=== PATIENT | female | born 2000 | race African-American/Black ===

== ENCOUNTER 2025-02-13 07:43 | Emergency (ER) | payer MEDICAID ==
[~2025-02-13] VITALS: Ht 170.2 cm; Wt 85.9 kg
[~2025-02-13 07:43] MED LIST: NITR-87 PO
[2025-02-13 08:03] VITALS: BP 135/87; PULSE 99; RESP 17; TEMP 99; O2SAT 100
[2025-02-13] MEDS: ACETAMINOPHEN 325 MG TAB PO ONE (08:42)
[2025-02-13] MEDS: methylPREDNISolone SOD SUCC 125 MG/2 ML VL IM ONE (08:42)
[2025-02-13 08:58] LABS: Rapid Strep A Screen-Throat Positive
[2025-02-13] MEDS ORDERED: AZIT-43 PO (09:15)
[2025-02-13] MEDS ORDERED: METH4PAK PO (09:15)
[2025-02-13] MEDS ORDERED: ACET500T58 PO (09:15)
[2025-02-13] MEDS ORDERED: LIDO2SOL18 MT (09:15)
--- NOTE | 2025-02-13 09:16 | ED.PDOC ---
Eye-HPI HPI Comments 24 year old requesting std screening and c/o sore throat. no red flags. Chief Complaint: Sore Throat Time Seen by MD: 08:06 Reviewed Notes: Nurses Notes, Medications, Allergies Allergies: Uncoded Allergies: PENICILLIN (Allergy, Unknown, 02/13/25) Home Meds Active Scripts Nitrofurantoin Monohydrate Mac (Macrobid) 100 Mg Cap, 100 MG PO BID for 5 Days, #10 CAP Prov:JODI LARA MD 02/23/23 Information Source: Patient Mode of Arrival: Ambulatory Past Medical History PAST MEDICAL HISTORY: Denies Surgical History: Hernia Repair CUTCH CLEANER History: No Pertinent CUTCH CLEANER History Family History Family History: Reviewed,noncontributory to illness Social History Smoker: Non-Smoker Alcohol: Denies ETOH Use Drugs: Denies Drug Use Lives In: Home All Other Systems: Reviewed and Negative (per hpi) Physical Exam General Appearance: No Apparent Distress, Normal HEENT: Normal ENT Inspection, Pharyngeal Erythema (bilateral tonsilar exudate. MMM. no airway obstruction), TMs Normal Neck: Full Range of Motion, Non-Tender, Normal, Normal Inspection Respiratory: Chest Non-Tender, Lungs Clear, No Accessory Muscle Use, No Respiratory Distress, Normal Breath Sounds Cardiovascular: No Edema, No JVD, No Murmur, No Gallop, Normal Peripheral Pulses, Regular Rate/Rhythm Breast Exam: Deferred Gastrointestinal: No Organomegaly, Non Tender, No Pulsatile Mass, Normal Bowel Sounds, Soft Genitalia: Deferred Pelvic: Deferred Rectal: Deferred Extremities: No calf tenderness, Normal capillary refill, Normal inspection, Normal range of motion, Non-tender, No pedal edema Musculoskeletal : Apperance: Normal Neurologic: Alert, lapel padder blindstitch II-XII nml as Tested, No Motor Deficits, Normal Affect, Normal Mood, No Sensory Deficits Cerebellar Function: Normal Reflexes: Normal Skin: Dry, Normal Color, Warm Lymphatic: No Adenopathy Was a procedure done? Was a procedure done?: No EENT DIFF Eye: Other Sore Throat: Streptococcal, Viral Pharyngitis, URI X-Ray, Labs, Meds, VS Vital Signs Date Time Temp Pulse Resp B/P (MAP) Pulse Ox O2 Delivery O2 Flow Rate FiO2 02/13/25 08:03 99.0 99 17 135/87 (103) 100 99.0 02/13/25 08:03 99 17 100 Room Air 02/13/25 07:54 99.0 99 17 135/87 (103) 100 99.0 Lab Test 02/13/25 07:44 Range/Units Group A Streptococcus Rapid Positive Current Medications Medications (Trade) Dose Ordered Sig/Irene Route Start Time Stop Time Status Last Admin Methylprednisolone Sodium Succinate (Solu Medrol) 125 mg ONCE ONCE IM 02/13/25 08:30 02/13/25 08:31 DC 02/13/25 08:42 Acetaminophen (Tylenol Tablet) 975 mg ONCE ONCE PO 02/13/25 08:30 02/13/25 08:31 DC 02/13/25 08:42 X-Ray, Labs, Meds, VS Comment Strep + Abx rx return precautions discussed Time of 1ST Reevaluation: 09:14 Reevaluation 1ST: Improved Patient Education/Counseling: Diagnosis, Treatment Family Education/Counseling: Diagnosis, Treatment Departure 1 Departure Time of Disposition: 09:14 Impression: Primary Impression: Strep throat Disposition: HOME / SELF CARE / HOMELESS Condition: Stable Additional Instructions: Discharge Note: Drink plenty of fluids. Follow up with your primary Dr. Take your prescriptions as ordered. If your condition becomes worse call and follow up with your primary Dr. for instructions or return to the ER if needed. Thank you for visiting [facility]. e-Prescriptions Lidocaine Hcl (Lidocaine Viscous) 2 % Delicia 15 ML MT TID for 2 Days, #200 ML 0 Refills Prov: RAYSHAWN DELVALLE NP 02/13/25 Acetaminophen (Acetaminophen) 500 Mg Tab 500 MG PO Q6HP PRN for 10 Days, #40 TAB 0 Refills Prov: RAYSHAWN DELVALLE NP 02/13/25 Methylprednisolone (Medrol Dosepak) 4 Mg Carlo 4 MG PO UD, #21 TAB 0 Refills UAD Prov: RAYSHAWN DELVALLE NP 02/13/25 Azithromycin (Azithromycin) 250 Mg Tab 250 MG PO DAILY MDD 500 for 5 Days, #6 TAB 0 Refills 2 TABLETS ORALLY ON DAY ONE, THEN 1 TABLET ORALLY DAILY FOR 4 DAYS Prov: RAYSHAWN DELVALLE CHARGING OPERATOR 02/13/25 Critical Care Note Critical Care Time?: No Stability Stability form required: No Heart Score Heart Score: Heart Score Response (Comments) Value History N/A 0 EKG N/A 0 Age N/A 0 Risk Factors N/A 0 Troponin N/A 0 Total 0 RAYSHAWN DELVALLE NP Feb 13, 2025 09:16
[2025-02-15 00:06] LABS: Chlamydia Trachomatis, NAA Negative (Negative); Neisseria gonorrhoeae, NAA Negative (Negative)
== END 2025-02-13 09:31 | disposition home or self-care (01) ==
LOC: ER 07:43
DX: J02.0 Streptococcal pharyngitis (principal); Z98.890 Other specified postprocedural states; Z88.0 Allergy status to penicillin
CPT/HCPCS: 87491; 87591; 87880; 96372; 99283; J2919